=== PATIENT | female | born 1945 | race Caucasian/White ===

== ENCOUNTER → 2016-04-27 | Outpatient (CLI) | payer OTHER | LOC: BMCIMAGING 10:39 | DX: Z12.31 Encounter for screening mammogram for malignant neoplasm of breast (principal); Z80.3 Family history of malignant neoplasm of breast | CPT/HCPCS: G0202 ==

== ENCOUNTER 2016-10-17 07:44 | Emergency (ER) | payer OTHER ==
--- NOTE | 2016-10-17 08:04 | EDPHY ---
H & P Stated Complaint: back pain Time Seen by Provider: 10/17/16 08:00 - Personal History Tetanus Vaccine Date: 01/2011 - Medical/Surgical History Hx Asthma: No Hx Chronic Respiratory Disease: No Hx Diabetes: No Hx Cardiac Disease: No Hx Renal Disease: No Hx Cirrhosis: No Hx Alcoholism: No Hx HIV/AIDS: No Hx Splenectomy or Spleen Trauma: No Other PMH: PE after knee replacement, GERD - Social History Smoking Status: Never smoked Constitutional: Initial Vital Signs Temperature (C) 36.9 C 10/17/16 07:45 Heart Rate 85 10/17/16 07:45 Respiratory Rate 16 10/17/16 07:45 Blood Pressure 148/86 H 10/17/16 07:45 O2 Sat (%) 98 10/17/16 07:45 O2 Delivery Mode Room Air Allergies/Adverse Reactions: No Known Allergies Allergy (Verified 06/15/14 16:54) Home Medications: Medication Instructions Recorded Baclofen 10/17/16 methylPREDNISolone [Medrol Dose 1 each PO AD #1 ea 10/17/16 Gilberto] oxyCODONE IR [Oxycodone Ir (*)] 5 - 10 mg PO Q6 PRN #20 tab 10/17/16 Medical Decision Making - Diagnostics Imaging: Discussed imaging studies w/ housecalls nurse Radiologist, I viewed and interpreted images myself ED Course/Re-evaluation: CHIEF COMPLAINT: Back pain HISTORY OF PRESENT ILLNESS: The patient is a 71 y/o female, with a history of a provoked PE, complaining of upper back pain onset yesterday morning upon waking. Her pain felt like a pulled muscle initially, so she treated it with ibuprofen and ice. This did not improve her symptoms and she had difficulty sleeping last night due to pain. Her pain is aggravated by deep breathing, some movements including turning her head to the left, and coughing. The pain sometimes extends into her neck and she has intermittent tingling in her left arm. She notes she's had a baseline cough related to acid reflux. No shortness of breath. She denies recent surgery, prolonged periods of sitting, long travel , or other risk factors for a PE. REVIEW OF SYSTEMS: A 10 point review of systems was performed and is negative with the exception of the elements mentioned in the history of present illness. PHYSICAL EXAM: HR, BP, O2 Sat, RR. Temp noted General Appearance: Alert, well hydrated, appropriate, and non-toxic appearing. Head: Atraumatic without scalp tenderness or obvious injury Eyes: Pupils equal, round, reactive to light and accommodation, EOMI, no trauma , no injection. Nose: Atraumatic, no rhinorrhea, clear. Throat: Mucus membranes moist. Neck: Supple, nontender, no lymphadenopathy. Respiratory: No retractions, no distress, no wheezes, and no accessory muscle use. Lungs are clear to auscultation bilaterally. Cardiovascular: Regular rate and rhythm, no murmurs, rubs, or gallops. Good capillary refill all extremities. Gastrointestinal: Abdomen is soft, nontender, non-distended, no masses, no rebound, no guarding, no peritoneal signs. Musculoskeletal: Normal active ROM of all extremities, atraumatic. Neurological: Alert, appropriate, and interactive. Left triceps 4/5 strength, normal biceps strength, otherwise nonfocal neuro exam. Skin: No rashes, good turgor, no nodules on palpation. Past medical history: Acid reflux, provoked PE Past surgical history: knee surgery Family history: noncontributory Social history: Lives in [place]. . Retired. DIAGNOSTICS/PROCEDURES/CRITICAL CARE TIME: MRI cervical spine: C5-T1 disc herniations DIFFERENTIAL DIAGNOSIS: The differential diagnosis for the patient's back pain included but was not limited to cervical radiculopathy, PE, musculoskeletal pain, epidural abscess, herniated disk, spinal fracture, and intra-abdominal causes including urinary system. MEDICAL DECISION MAKING: This is a 71 y/o female who presents with a 1-day history of upper back and neck pain with no obvious precipitating event. Her pain is pleuritic and associated with increased intrathoracic pressure. She has mild tenderness to palpation over her left levator scapulae, rhomboids, and trapezius. This pain is also reproducible when turning her head to the left. She has slightly decreased strength in her left triceps, but her left biceps strength remains normal. She is otherwise neurovascularly intact. She has no tachycardia or tachypnea nor acute risk factors for PE apart from her prior provoked PE. Her presentation is more indicative of a cervical radiculopathy. Plan for MRI to rule out acute surgical process. Reassessed patient and discussed imaging results. Her MRI shows multilevel disc herniations. Her exam is unchanged. She will be discharged with standard disc herniation care instructions, Medrol dose pack, OxyIR, and referral to neurosurgery. Specific return precautions given. She is comfortable with this plan. Departure - Departure Disposition: Home, Routine, Self-Care Clinical Impression: Cervical radiculopathy, Cervical disc herniation, C5-T1 Condition: Good Instructions: Cervical Disc Herniation (ED), Cervical Radiculopathy (ED) Additional Instructions: 1. Take Medrol dose pack as prescribed. 2. Use OxyIR as prescribed when needed for severe pain. 3. Follow up with Dr. Baker, neurosurgeon, in the next week. 4. Return to the ED for severe pain, worsening weakness or numbness in your arm , fever, shortness of breath, or other worsening of condition. Referrals: Hermelinda Thomas MD [Primary Care Provider] - As per Instructions Aramis Baker MD [Medical Doctor] - As per Instructions Prescriptions: methylPREDNISolone [Medrol Dose Gilberto] 1 each PO AD #1 ea oxyCODONE IR [Oxycodone Ir (*)] 5 - 10 mg PO Q6 PRN #20 tab PRN Reason: Pain, Severe Report Scribed for: Toño Berrios Report Scribed by: Leda Caceres Date of Report: 10/17/16 Time of Report: 08:15
[2016-10-17 10:02] VITALS: BP 145/81; PULSE 73; RESP 20; TEMP 97.9; O2SAT 94
== END 2016-10-17 10:02 | disposition home or self-care (01) ==
DX: M50.10 Cervical disc disorder with radiculopathy, unspecified cervical region (principal)

== ENCOUNTER → 2017-02-18 | Outpatient (CLI) | payer OTHER | LOC: BMCIMAGING 10:03 | PROVIDERS: ATTEND Internal Medicine | DX: N64.59 Other signs and symptoms in breast (principal) | CPT/HCPCS: G0204 ==

== ENCOUNTER 2018-01-22 04:02 | Emergency (ER) | payer OTHER ==
[2018-01-22] MEDS ORDERED: NS 500 ML IV ONE (04:29)
[2018-01-22] MEDS ORDERED: KETOROLAC 15 MG/1 ML SDV IVP ONE (04:29)
--- NOTE | 2018-01-22 04:39 | EDPHY ---
H & P Stated Complaint: LEFT ABD PAIN, SAW [facility], GIVEN AUGMENTIN FOR ? DIVERTICULITIS Time Seen by Provider: 01/22/18 04:13 HPI/ROS: HPI The patient presents with left-sided lower quadrant abdominal pain which is dull in nature though becomes intermittently sharp and severe. It is worse when she strains or has a bowel movement. The pain is been present for the last 2 days and started slowly. She does not have any vomiting though is nauseated. She does not have a fever. She has had 2-3 bouts of diverticulitis previously in her life and this feels somewhat similar. Yesterday she was seen at an urgent care. Urinalysis was performed and was negative per her report. She was started on Augmentin and has taken 1 dose of this for presumed diverticulitis. REVIEW OF SYSTEMS 10 systems were reviewed and negative with the exception of the elements mentioned in the history of present illness. PMHx: History of pulmonary embolism, history of diverticulitis, GERD, knee replacements Soc Hx: Housed PHYSICAL General Appearance: Alert, no distress Eyes: Pupils equal and round no pallor or injection ENT, Mouth: Mucous membranes moist Respiratory: There are no retractions, lungs are clear to auscultation Cardiovascular: Regular rate and rhythm Gastrointestinal: Abdomen is soft and tender in the left lower quadrant without rebound or guarding, no masses, bowel sounds normal Neurological: A&O, moves all extremities Skin: Warm and dry, no rashes Musculoskeletal: Neck is supple non tender Extremities: symmetrical, full range of motion Psychiatric: Patient is oriented X 3, there is no agitation Source: Patient Exam Limitations: No limitations - Personal History Current Tetanus/Diphtheria Vaccine: Yes Tetanus Vaccine Date: 01/2011 - Medical/Surgical History Hx Asthma: No Hx Chronic Respiratory Disease: No Hx Diabetes: No Hx Cardiac Disease: No Hx Renal Disease: No Hx Cirrhosis: No Hx Alcoholism: No Hx HIV/AIDS: No Hx Splenectomy or Spleen Trauma: No Other PMH: PE after knee replacement, GERD , BILAT HIP REPLACE, KNEE REPLACE, DIVERTICULITIS, HYSTERECTOMY, OOPHERCETOMY, LPR - Social History Smoking Status: Former smoker Constitutional: Initial Vital Signs Temperature (C) 36.7 C 01/22/18 04:05 Heart Rate 86 01/22/18 04:05 Respiratory Rate 18 01/22/18 04:05 Blood Pressure 138/78 H 01/22/18 04:05 O2 Sat (%) 95 01/22/18 04:05 O2 Delivery Mode Room Air Allergies/Adverse Reactions: No Known Allergies Allergy (Verified 01/22/18 04:11) Home Medications: Medication Instructions Recorded Baclofen 10/17/16 Temazepam 01/22/18 Medical Decision Making - Diagnostics Imaging Results: CT abdomen pelvis with IV contrast demonstrates diverticulitis, constipation, discussed with Dr. James Valiente of Radiology. Imaging: Discussed imaging studies w/ call center nurse Radiologist Differential Diagnosis: 72-year-old female with history of previous diverticulitis without complication presents with 2 days of progressive left lower quadrant abdominal pain associated with nausea. She has taken 1 dose of Augmentin for presumed diverticulitis, diagnosed at urgent care yesterday. Differential diagnosis includes acute diverticulitis, perforation or microabscess, renal colic, pancreatitis. In the emergency department, patient was given Toradol and IV fluids. She was able to rest and felt better. Labs showed elevated bilirubin, otherwise relatively unremarkable. His CT scan demonstrated acute diverticulitis without complication. She felt well enough to go home though she was offered admission. I have given her a dose of IV antibiotics here and have instructed her to continue her Augmentin for a one-week course total. - Data Points Laboratory Results: Laboratory Results 01/22/18 04:30 01/22/18 04:30 01/22/18 01/22/18 01/22/18 04:49 04:40 04:30 WBC RBC Hgb Hct MCV MCH MCHC RDW Plt Count MPV Neut % (Auto) Lymph % (Auto) Crosby % (Auto) Eos % (Auto) Baso % (Auto) Nucleat RBC Rel Count Absolute Neuts (auto) Absolute Lymphs (auto) Absolute Monos (auto) Absolute Eos (auto) Absolute Basos (auto) Absolute Nucleated RBC Immature Gran % Immature Gran # Sodium Potassium Chloride Carbon Dioxide Anion Gap BUN Creatinine Estimated GFR Glucose Calcium Total Bilirubin Conjugated Bilirubin Unconjugated Bilirubin AST ALT Alkaline Phosphatase POC Troponin I 0.00 ng/mL ng/mL (0.00-0.08) Total Protein Albumin Lipase 84 IU/L IU/L (23-300) Urine Color YELLOW Urine Appearance HAZY Urine pH 5.0 (5.0-7.5) Ur Specific Dorris 1.017 (1.002-1.030) Urine Protein NEGATIVE (NEGATIVE) Urine Ketones TRACE H (NEGATIVE) Urine Blood 1+ H (NEGATIVE) Urine Nitrate NEGATIVE (NEGATIVE) Urine Bilirubin NEGATIVE (NEGATIVE) Urine Urobilinogen NEGATIVE EU EU (0.2-1.0) Ur Leukocyte Esterase NEGATIVE (NEGATIVE) Urine RBC 1-3 /hpf /hpf (0-3) Urine WBC 1-3 /hpf /hpf (0-3) Ur Epithelial Cells NONE SEEN /lpf /lpf (NONE-1+) Urine Mucus TRACE /lpf /lpf (NONE-1+) Urine Glucose NEGATIVE (NEGATIVE) 01/22/18 01/22/18 04:30 04:30 WBC 7.79 10^3/uL 10^3/uL (3.80-9.50) RBC 5.09 10^6/uL 10^6/uL (4.18-5.33) Hgb 15.0 g/dL g/dL (12.6-16.3) Hct 43.6 % % (38.0-47.0) MCV 85.7 fL fL (81.5-99.8) MCH 29.5 pg pg (27.9-34.1) MCHC 34.4 g/dL g/dL (32.4-36.7) RDW 13.1 % % (11.5-15.2) Plt Count 219 10^3/uL 10^3/uL (150-400) MPV 11.2 fL fL (8.7-11.7) Neut % (Auto) 74.8 % H % (39.3-74.2) Lymph % (Auto) 15.7 % % (15.0-45.0) Crosby % (Auto) 7.4 % % (4.5-13.0) Eos % (Auto) 1.4 % % (0.6-7.6) Baso % (Auto) 0.4 % % (0.3-1.7) Nucleat RBC Rel Count 0.0 % % (0.0-0.2) Absolute Neuts (auto) 5.83 10^3/uL 10^3/uL (1.70-6.50) Absolute Lymphs (auto) 1.22 10^3/uL 10^3/uL (1.00-3.00) Absolute Monos (auto) 0.58 10^3/uL 10^3/uL (0.30-0.80) Absolute Eos (auto) 0.11 10^3/uL 10^3/uL (0.03-0.40) Absolute Basos (auto) 0.03 10^3/uL 10^3/uL (0.02-0.10) Absolute Nucleated RBC 0.00 10^3/uL 10^3/uL (0-0.01) Immature Gran % 0.3 % % (0.0-1.1) Immature Gran # 0.02 10^3/uL 10^3/uL (0.00-0.10) Sodium 139 mEq/L mEq/L (135-145) Potassium 4.1 mEq/L mEq/L (3.3-5.0) Chloride 105 mEq/L mEq/L (97-110) Carbon Dioxide 26 mEq/l mEq/l (22-31) Anion Gap 8 mEq/L mEq/L (6-14) BUN 16 mg/dL mg/dL (7-23) Creatinine 0.6 mg/dL mg/dL (0.6-1.0) Estimated GFR > 60 Glucose 110 mg/dL H mg/dL (70-100) Calcium 9.6 mg/dL mg/dL (8.5-10.4) Total Bilirubin 2.2 mg/dL H mg/dL (0.1-1.4) Conjugated Bilirubin 0.1 mg/dL mg/dL (0.0-0.5) Unconjugated Bilirubin 2.1 mg/dL H mg/dL (0.0-1.1) AST 20 IU/L IU/L (14-46) ALT 28 IU/L IU/L (9-52) Alkaline Phosphatase 97 IU/L IU/L (38-126) POC Troponin I Total Protein 7.0 g/dL g/dL (6.3-8.2) Albumin 4.2 g/dL g/dL (3.5-5.0) Lipase Urine Color Urine Appearance Urine pH Ur Specific Dorris Urine Protein Urine Ketones Urine Blood Urine Nitrate Urine Bilirubin Urine Urobilinogen Ur Leukocyte Esterase Urine RBC Urine WBC Ur Epithelial Cells Urine Mucus Urine Glucose Medications Given: Metronidazole/Sodium Chloride (Flagyl 500 Mg (Premix)) 100 mls @ 100 mls/hr IV EDNOW ONE PRN Reason: Protocol Stop: 01/22/18 06:35 Last Admin: 01/22/18 05:44 Dose: 100 mls Discontinued Medications Sodium Chloride (Ns) 500 mls @ 1,000 mls/hr IV EDNOW ONE PRN Reason: Protocol Stop: 01/22/18 04:58 Last Admin: 01/22/18 04:46 Dose: 500 mls Ceftriaxone Sodium 2 gm/ (Sodium Chloride) 50 mls @ 100 mls/hr IV EDNOW ONE PRN Reason: Protocol Stop: 01/22/18 06:05 Last Admin: 01/22/18 05:58 Dose: 50 mls Ketorolac Tromethamine (Toradol) 15 mg IVP EDNOW ONE Stop: 01/22/18 04:30 Last Admin: 01/22/18 04:45 Dose: 15 mg Ondansetron HCl (Zofran) 4 mg IVP EDNOW ONE Stop: 01/22/18 04:46 Last Admin: 01/22/18 04:46 Dose: 4 mg Point of Care Test Results: Chemistry 01/22/18 04:49 POC Troponin I 0.00 ng/mL ng/mL (0.00-0.08) Departure - Departure Disposition: Home, Routine, Self-Care Clinical Impression: Acute diverticulitis Condition: Good Instructions: Diverticulitis (ED) Additional Instructions: Please make sure to drink plenty of fluids until your feeling better. It is okay to take ibuprofen 400 mg or acetaminophen 650 mg every 6 hr as needed for your pain. You should resume taking your Augmentin tonight and take the full course. Your scan today did show that you have some constipation and you may want to take prune juice or even MiraLax for this. You should return to the emergency department if your worse in any way. Otherwise, please plan on following up with your primary care doctor for recheck later this week. Referrals: Hermelinda Thomas MD [Primary Care Provider] - As per Instructions
[2018-01-22] MEDS ORDERED: ONDANSETRON 4 MG/2 ML VIAL ONE (04:40)
[2018-01-22 04:44] LABS: PLATELET COUNT 219 10^3/uL (150-400)
[2018-01-22] MEDS ORDERED: ONDANSETRON 4 MG/2 ML VIAL IVP ONE (04:45)
[2018-01-22] MEDS ORDERED: IOPAMIDOL (ISOVUE-300) 100 ML BTL ONE (04:52)
[2018-01-22 06:50] VITALS: BP 124/74
== END 2018-01-22 06:50 | disposition home or self-care (01) ==
DX: K57.32 Diverticulitis of large intestine without perforation or abscess without bleeding (principal); Z87.891 Personal history of nicotine dependence
CPT/HCPCS: 74177; 96374; 96375; 99285; J0696; J1885; J2405; Q9967; 84484-PO

== ENCOUNTER → 2018-03-22 | Outpatient (CLI) | payer OTHER | LOC: BMCIMAGING 12:19 | PROVIDERS: ATTEND Internal Medicine | DX: Z12.31 Encounter for screening mammogram for malignant neoplasm of breast (principal); Z80.3 Family history of malignant neoplasm of breast ==

== ENCOUNTER 2018-07-25 09:06 | Emergency (ER) | payer OTHER ==
[2018-07-25] MEDS ORDERED: NS 1,000 ML IV ONE (09:36)
--- NOTE | 2018-07-25 09:40 | EDPHY ---
General Time Seen by Provider: 07/25/18 09:13 Narrative: CLINICAL IMPRESSION: Sigmoid diverticulitis, hyperbilirubinemia ASSESSMENT/PLAN: 73-year-old female presents to the emergency department with several months of intermittent lower abdominal cramping. She reports a history of diverticulitis , last treated in January of 2018. She has been using IBS medication without significant improvement. She arrives afebrile with stable vital signs, soft abdomen with no focal peritoneal findings or suggestion of acute surgical process. She has declined analgesics in the ED. Labs are reassuring. She was noted to have a persistent hyperbilirubinemia that traces back to late 2017. She has no right upper quadrant pain, jaundice, bleeding, rash, or suggestion of acute cholecystitis. CT scan today read by Radiology showing persistent sigmoid diverticulitis without evidence of perforation or abscess. She is nontoxic, nonseptic, has no leukocytosis, metabolic disturbance or renal insufficiency. She will be treated with Flagyl and Cipro given that her last course of treatment with Augmentin did not fully resolve her symptoms. I strongly encouraged follow-up with gastroenterology to discuss elevated bilirubin levels and persistent IBS symptoms. I encouraged primary care follow- up in 1-2 days. Low threshold for return to ED sooner as discussed in person and discharge papers. Case reviewed with Dr. Cox. DIFFERENTIAL DX: Abdominal pain includes but not limited to acute appendicitis, diverticulitis, cholecystitis, pancreatitis, SBO, gastroenteritis, aortic aneurysm, constipation ED PROCEDURES: See lab and/or imaging results below ED COURSE: 9:30 p.m.: Patient seen and assessed by myself. Laying comfortably in the bed , no acute distress, vital signs stable. Plan for IV, labs, CT with contrast. 11:00 a.m.: CT discussed with Dr. Means, patient has diverticulitis of the sigmoid colon, essentially appearing the same as in January of 2018. No other significant findings reported. Lab notable for persistent hyperbilirubinemia. CT and lab findings discussed with patient and I encouraged GI and PCP f/u in the next week which she agrees to. Abx prescribed, warning signs for return discussed. CHIEF COMPLAINT: Abdominal cramping and nausea HPI: 73-year-old female with reported past medical history of laryngopharyngeal reflux, IBS, and diverticulitis, presents to the emergency department with intermittent abdominal cramping since may. Patient reports in January of last year she was diagnosed with diverticulitis by our emergency department, took a course of Augmentin prescribed by S and a 2nd dose prescribed by her primary care. She is not sure if the cramping ever fully went away. Since may she has had intermittent cramping which she attributed to IBS and tried taking Bentyl. She was never assessed by primary care. She has some associated nausea but no vomiting. Last night she had more severe pain and cramping associated with 1 bowel movement containing blood in mucus. She reports her bowel habits have been intermittent between constipation and soft stools. No associated fever, chills, UTI symptoms, flank pain, chest pain or shortness of breath. No jaundice or skin changes. She has had prior hysterectomy and oophorectomy but no other surgery to the belly. She currently rates her pain as 2/10 PAST MEDICAL HISTORY: Diverticulitis, LPR, IBS See nurse/triage notes for additional history if applicable Pertinent Past Surgical History: Hysterectomy, oophorectomy Family History: None reported Social History: Originally from [place], nonsmoker, does not drink alcohol regularly REVIEW OF SYSTEMS: All other systems negative Constitutional: No fever, no chills, slight appetite change. Cardiovascular: No chest pain, no palpitations. Respiratory: No cough, no shortness of breath. Gastrointestinal: Positive for mild abdominal pain, positive for nausea, no vomiting, diarrhea. Genitourinary: No hematuria, dysuria, flank pain, pelvic pain Musculoskeletal: No back pain, joint swelling, joint pain, myalgias. Skin: No rashes, color change. Neurological: No headache, dizziness, weakness. PHYSICAL EXAM: General Appearance: Alert, oriented, appropriate, cooperative, lying comfortably in the bed, NAD, well hydrated, non-toxic appearing, VSS, no hypoxia. HEENT: Oropharynx clear is no erythema or exudates, no tonsillar hypertrophy or asymmetry. Moist mucous membranes Respiratory: There are no retractions, lungs are clear to auscultation. Cardiac: Regular rate and rhythm, no murmurs or gallops. Gastrointestinal: Abdomen is soft, mild tenderness to periumbilical and epigastric region, strong aortic pulse noted, bowel sounds normal, no masses/ hernia, no rigidity, guarding or focal peritoneal findings. Neurological: [ Alert and oriented x 3 Skin: Warm, dry, no rashes, no nodules on palpation. MEDICAL DECISION MAKING: Patient was seen independently. Secondary supervising physician at time of evaluation was Dr. Cox. Diagnosis: Sigmoid diverticulitis, hyperbilirubinemia . New, requires workup Summary: See Assessment and Plan for summary of ED visit Clinical lab tests: ordered / reviewed. Independent visualization of images, tracing, or specimens: Yes. Decision to obtain medical records or history from someone other than the patient: No Review / Summarize previous medical records: Reviewed last ED notes Discussed patient with another provider: Dr. Cox, radiology Patient Progress: Stable for discharge. - Diagnostics Imaging Results: Imaging Impressions Abdomen CT 07/25/18 09:36 Impression: Fluid-filled diverticulum in the sigmoid colon with surrounding pericolonic fat stranding and edema, suspicious for acute diverticulitis. No drainable abscess. Diverticulitis is in the same location as in January 2018. Findings and recommendations discussed with Sergey Cano at 1057 hour, . - History Smoking Status: Former smoker - Objective Vital Signs: Initial Vital Signs Temperature (C) 37.3 C 07/25/18 09:10 Heart Rate 84 07/25/18 09:10 Respiratory Rate 16 07/25/18 09:10 Blood Pressure 132/76 H 07/25/18 09:10 O2 Sat (%) 95 07/25/18 09:10 O2 Delivery Mode Room Air Allergies/Adverse Reactions: No Known Allergies Allergy (Verified 07/25/18 09:09) Home Medications: Medication Instructions Recorded Baclofen 10/17/16 Temazepam 01/22/18 Bentyl 10 MG (*) 07/25/18 Ciprofloxacin [Cipro 500 mg] 500 mg PO BID #14 tab 07/25/18 metroNIDAZOLE [Flagyl 500 mg (*)] 500 mg PO BID #14 tab 07/25/18 Laboratory Results: Laboratory Results 07/25/18 09:45 07/25/18 09:45 07/25/18 07/25/18 09:45 09:45 WBC 5.90 10^3/uL 10^3/uL (3.80-9.50) RBC 4.96 10^6/uL 10^6/uL (4.18-5.33) Hgb 14.7 g/dL g/dL (12.6-16.3) Hct 42.3 % % (38.0-47.0) MCV 85.3 fL fL (81.5-99.8) MCH 29.6 pg pg (27.9-34.1) MCHC 34.8 g/dL g/dL (32.4-36.7) RDW 13.5 % % (11.5-15.2) Plt Count 193 10^3/uL 10^3/uL (150-400) MPV 11.3 fL fL (8.7-11.7) Neut % (Auto) 64.8 % % (39.3-74.2) Lymph % (Auto) 24.7 % % (15.0-45.0) [place] % (Auto) 8.8 % % (4.5-13.0) Eos % (Auto) 1.0 % % (0.6-7.6) Baso % (Auto) 0.5 % % (0.3-1.7) Nucleat RBC Rel Count 0.0 % % (0.0-0.2) Absolute Neuts (auto) 3.82 10^3/uL 10^3/uL (1.70-6.50) Absolute Lymphs (auto) 1.46 10^3/uL 10^3/uL (1.00-3.00) Absolute Monos (auto) 0.52 10^3/uL 10^3/uL (0.30-0.80) Absolute Eos (auto) 0.06 10^3/uL 10^3/uL (0.03-0.40) Absolute Basos (auto) 0.03 10^3/uL 10^3/uL (0.02-0.10) Absolute Nucleated RBC 0.00 10^3/uL 10^3/uL (0-0.01) Immature Gran % 0.2 % % (0.0-1.1) Immature Gran # 0.01 10^3/uL 10^3/uL (0.00-0.10) Sodium 138 mEq/L mEq/L (135-145) Potassium 3.9 mEq/L mEq/L (3.5-5.2) Chloride 106 mEq/L mEq/L (97-110) Carbon Dioxide 24 mEq/l mEq/l (22-31) Anion Gap 8 mEq/L mEq/L (6-14) BUN 16 mg/dL mg/dL (7-23) Creatinine 0.6 mg/dL mg/dL (0.6-1.0) Estimated GFR > 60 Glucose 85 mg/dL mg/dL (70-100) Calcium 9.3 mg/dL mg/dL (8.5-10.4) Total Bilirubin 2.6 mg/dL H mg/dL (0.1-1.4) Conjugated Bilirubin 0.0 mg/dL mg/dL (0.0-0.5) Unconjugated Bilirubin 2.6 mg/dL H mg/dL (0.0-1.1) AST 19 IU/L IU/L (14-46) ALT 27 IU/L IU/L (9-52) Alkaline Phosphatase 91 IU/L IU/L (38-126) Total Protein 6.4 g/dL g/dL (6.3-8.2) Albumin 4.0 g/dL g/dL (3.5-5.0) Lipase 85 IU/L IU/L (23-300) Medications Given: Discontinued Medications Acetaminophen (Tylenol) 1,000 mg PO EDNOW ONE Stop: 07/25/18 11:19 Last Admin: 07/25/18 11:30 Dose: Not Given Sodium Chloride (Ns) 1,000 mls @ 0 mls/hr IV EDNOW ONE; Wide Open PRN Reason: Protocol Stop: 07/25/18 09:37 Last Admin: 07/25/18 10:10 Dose: 1,000 mls Departure - Departure Disposition: Home, Routine, Self-Care Clinical Impression: Diverticulitis, Serum total bilirubin elevated Condition: Good Instructions: Diverticulitis (ED) Additional Instructions: DISCHARGE INSTRUCTIONS FROM YOUR DOCTOR Thank you for visiting our emergency department today. You were treated by a physician painter assistant today and your case was reviewed with our ED Attending physician. Please keep in mind that discharge from the emergency department does not mean that there is nothing wrong - it simply means that we have not identified an emergency condition that requires further evaluation or treatment in the hospital. You should always plan to follow up with primary care for re- evaluation of your condition in the next 2-3 days. If you have been referred to a specialist, please call as soon as possible (today or tomorrow) to schedule your follow up appointment at the appropriate time. DIAGNOSTIC EVALUATION IN THE EMERGENCY DEPARTMENT TODAY INCLUDED LAB WORK AND CT SCAN. LAB WORK SHOWS A MILDLY ELEVATED UNCONJUGATED AND TOTAL BILIRUBIN. THESE APPEAR TO HAVE BEEN ELEVATED SINCE JANUARY BUT ARE SLIGHTLY MORE ELEVATED TODAY. WE RECOMMEND THAT YOU DISCUSSED THIS WITH A REGIONAL BUSINESS MANAGER AND A REFERRAL WAS GIVEN. THE REMAINDER OF YOUR LAB WORK IS REASSURING. NO ELEVATION TO INFECTION FIGHTING COUNT, NORMAL KIDNEY FUNCTIONS AND NORMAL ELECTROLYTES. CT SCAN WAS INTERPRETED BY THE RADIOLOGIST SHOWING DIVERTICULITIS OF THE SIGMOID COLON WITH NO EVIDENCE OF ABSCESS OR PERFORATION. HE DID NOT IDENTIFY ANY OTHER SIGNIFICANT ABNORMALITY WITHIN THE ABDOMEN. WE HAVE GIVEN YOU 2 DIFFERENT ANTIBIOTICS TO TAKE TODAY FOR DIVERTICULITIS. DO NOT DRINK ALCOHOL WHILE TAKING THIS ANTIBIOTIC AND PLEASE BE AWARE OF ANY TENDON OR JOINT PAIN THAT BECOMES VERY SEVERE. PLEASE MAKE A FOLLOW-UP APPOINTMENT WITH HER PRIMARY CARE DOCTOR THIS WEEK TO RECHECK. RETURN TO THE EMERGENCY DEPARTMENT IMMEDIATELY FOR SEVERE ABDOMINAL PAIN, FEVER GREATER THAN 100.4, VOMITING, INCREASED BLOODY STOOLS, ABDOMINAL DISTENSION, WEAKNESS OR ALTERED MENTAL STATUS, JAUNDICE OF THE SKIN, OR ANY OTHER CONCERNS. People present with illnesses and injuries in different ways, and it is always possible that we have missed something. You may always return for re-evaluation if symptoms worsen or if they are not improving or if you develop new/different symptoms. Again, thank you for choosing our emergency department. We hope that you feel better. Referrals: Hermelinda Thomas MD [Primary Care Provider] - 1-2 days without fail Gigi Zarco MD [Medical Doctor] - 5-7 days, call for appt. Prescriptions: Ciprofloxacin [Cipro 500 mg] 500 mg PO BID #14 tab metroNIDAZOLE [Flagyl 500 mg (*)] 500 mg PO BID #14 tab
[2018-07-25 09:56] LABS: PLATELET COUNT 193 10^3/uL (150-400)
[2018-07-25] MEDS ORDERED: IOPAMIDOL (ISOVUE-300) 100 ML BTL ONE (10:14)
[2018-07-25] MEDS ORDERED: ACETAMINOPHEN 500 MG TAB PO ONE (11:18)
[2018-07-25 11:33] VITALS: BP 143/73
== END 2018-07-25 11:33 | disposition home or self-care (01) ==
DX: K57.92 Diverticulitis of intestine, part unspecified, without perforation or abscess without bleeding (principal); R17 Unspecified jaundice; E86.9 Volume depletion, unspecified; Z79.899 Other long term (current) drug therapy
CPT/HCPCS: 74177; 96360; 99285; Q9967